=== PATIENT | female | born 1960 | race Caucasian/White ===

== ENCOUNTER 2022-01-22 10:42 | Emergency (ER) | payer MEDICAID, SELFPAY ==
[2022-01-22 11:00] VITALS: BP 143/72; PULSE 93; RESP 19; TEMP 36.9; O2SAT 97; BMI 25.3
--- NOTE | 2022-01-22 11:17 | HMH.EDUTC ---
[facility] [place] Disposition Clinical Impression: URI (upper respiratory infection) Qualifiers: URI type: unspecified URI Qualified Code(s): J06.9 - Acute upper respiratory infection, unspecified Disposition: Home, Self-Care Condition on Discharge: Good Instructions: DI for COVID-19 (Suspected or Confirmed ), Preventing the Spread of Coronavirus Discharge Instructions Additional Instructions: *Monitor Temp, Over the counter Motrin or Tylenol as directed/as needed Tylenol every 4 hours and Motrin every 6 hours (as long as your family doctor has told you that you can take it) for fever or pain. and straight to ER if unable to lower temp less than 101.0 after medication given Follow up IMMEDIATELY for new or worsening symptoms or no Noticeable improvement over the next 48-72 hours. 911 for difficulty breathing or swallowing You were tested for today for COVID19 your test result should be back in the next 24-48 hours, you may check your results on the [facility] My Health Portal Make sure to take your Vitamins Vit. C Vit D and Zinc if you can take them Prescriptions: guaiFENesin [Mucinex 600mg tablet] 1 - 2 tab PO Q12HP PRN #20 tab PRN Reason: Congestion Transmission Status: Pending to [facility] methylPREDNISolone [Medrol 4mg tab] 4 mg PO DIRECTED #21 tab Transmission Status: Pending to [facility] Azithromycin [Z-Landon 250mg Tab] 250 mg PO DIRECTED #6 tab Transmission Status: Pending to [facility] Referrals: Provider,Referral, MD [Primary Care Provider] - As needed Forms: Work/School Release Medical Decision Making - Joshua Inquiry Pt receiving controlled substance: No Joshua was queried for this patient: No Vital Signs: 01/22/22 11:00 Temperature 98.5 F Temperature Source Oral Pulse Rate [Left Brachial] 93 H Respiratory Rate 19 Blood Pressure [Left Arm] 143/72 H Blood Pressure Mean [Left Arm] 95 Blood Pressure Source [Left Arm] Automatic Cuff Blood Pressure Position [Left Arm] Sitting 02 Sat by Pulse Oximetry 97 Oxygen Delivery Method Room Air Orders (Tests/Meds): ORDERS Category Date Time Status Covid-19 Nasal PCR ([facility]) Routine Lab 01/22/22 11:00 Ordered [facility] [place] HPI - General Stated complaint: covid test Time Seen by Provider: 01/22/22 11:17 Mode of Arrival: Ambulatory Source of Information: Patient Limitations: No Limitations Description of Symptoms (Recalled from Triage Doc. by RN): PATIENT C/O RUNNY NOSE AND CHEST CONGESTION SINCE FRIDAY. SHE REPORTS HER SISTER IS POSITIVE FOR COVID HEENT Symptoms (Recalled from RN notes): Yes Resp Symptoms (Recalled from RN notes): No Skin Symptoms (Recalled from RN notes): No MS Symptoms (Recalled from RN notes): No Functional Status (Recalled from RN notes): WNL - History of Present Illness Provider Complaint: Patient states that she has been having sinus congestion, pressure behind her eyes, and chest congestion States that then she was around her sister over the weekend that tested positive for COVID so she came in to get checked - Related Data Previous Rx's Medication Instructions Recorded Azithromycin [Z-Landon 250mg Tab] 250 mg PO DIRECTED #6 tab 01/22/22 guaiFENesin [Mucinex 600mg tablet] 1 - 2 tab PO Q12HP PRN #20 tab 01/22/22 methylPREDNISolone [Medrol 4mg 4 mg PO DIRECTED #21 tab 01/22/22 tab] Allergies Allergy/AdvReac Type Severity Reaction Status Date / Time Penicillins [PENICILLINS] Allergy Intermediate Hives Verified 07/04/19 11:56 - Worker's Comp Is this a Worker's Comp case?: No [facility] History - Hepatitis A Screen Attestation statement:: This patient has been screened for Hepatitis A risk factors. I have reviewed the patient's past medical history: Yes Medical History: Denies:: Cancer, Diabetes Mellitus Type 1, Diabetes Mellitus Type 2, MRSA Comment: Patient states no significant medical history. Other Surgeries: Yes: Tubal Ligation Amputation: No Fractures: No - Social Histo
[2022-01-22 11:30] VITALS: BP 143/72; PULSE 93; RESP 19; TEMP 36.9; O2SAT 97
== END 2022-01-22 11:33 | disposition home or self-care (01) ==
PROVIDERS: Emergency Provider Nurse Practitioner
DX: J06.9 Acute upper respiratory infection, unspecified (principal); Z72.0 Tobacco use; R09.81 Nasal congestion; R09.89 Other specified symptoms and signs involving the circulatory and respiratory systems; Z20.822 Contact with and (suspected) exposure to COVID-19
CPT/HCPCS: 99212; C9803; G0463; U0003; U0005

== ENCOUNTER 2024-01-22 20:09 | Emergency (ER) | payer BC, SELFPAY ==
[2024-01-22 20:09] VITALS: BP 142/67; PULSE 79; RESP 16; TEMP 36.4; O2SAT 96; BMI 31.7
--- NOTE | 2024-01-22 20:10 | ECG_ITS ---
APPROVED REPORT Exam: Resting ECG HR:80 bpm ECG Measurements Heart Rate 80 AXES GA 133 P 77 QRSd 90 QRS 86 QT 382 T 81 QTc 418 Conclusion SINUS RHYTHM NORMAL ECG UNCONFIRMED REPORT Electronically signed by : Fidel Bullock, 01/22/2024 23:15:04
--- NOTE | 2024-01-22 20:15 | CT_ITS ---
PROCEDURE INFORMATION: Exam: CT Head Without Contrast Exam date and time: 01/22/2024 8:32 PM Age: 63 years old Clinical indication: Injury or trauma; Additional info: Syncope TECHNIQUE: Imaging protocol: Computed tomography of the head without contrast. Radiation optimization: All CT scans at this facility use at least one of these dose optimization techniques: automated exposure control; mA and/or kV adjustment per patient size (includes targeted exams where dose is matched to clinical indication); or iterative reconstruction. COMPARISON: No relevant prior studies available. FINDINGS: Brain: The brain parenchyma appears unremarkable, with no signs of acute intracranial hemorrhage or significant mass effect. There is hypodensity in the subcortical and periventricular white matter which is technically nonspecific but most often related to chronic microvascular disease. Cerebral ventricles: Mild ventricular enlargement consistent with age-related cerebral atrophy is noted. Paranasal sinuses: Paranasal sinuses show age-appropriate mucosal thickening. Mastoid air cells: Visualized mastoid air cells are well aerated. Bones: There are no skull fractures or bony lesions. Soft tissues: Unremarkable. IMPRESSION: Presumably age-related and chronic changes without acute intracranial abnormality.
--- NOTE | 2024-01-22 20:15 | ED_ITS ---
<Statement entered by Ora Bullock MD - 01/22/24 23:08> I was consulted by the TANO, and we discussed the complexity of the problems being addressed. I approved the treatment and management plan for this patient's care in the emergency department, thus performing a substantive portion of the medical decision making. Ora Bullock MD, OLIVIA, FACEP Discharge Plan Disposition Patient Disposition: Home, Self-Care Condition: Good Chief Complaint: Syncope Prescriptions Prescriptions: No Action azithromycin 250 MG tablet 250 mg PO DIRECTED Qty: 6 0RF Rx Instructions: Take two (2) tablets on day #1, then one (1) tablet day #2 thru #5 methylprednisolone 4 MG tablet 4 mg PO DIRECTED Qty: 21 0RF Rx Instructions: Take as directed on package instructions guaifenesin 600 MG tablet extended release 12hr 1 - 2 tab PO Q12HP PRN (Reason: Congestion) Qty: 20 0RF Referrals Follow up/Referrals: Gorge Bustso MD [Staff Physician] - See instructions Activity Restrictions/Add. Instructions Additional Instructions/Restrictions: Please follow-up with your PCP for recheck. I referred you to cardiology for full cardiovascular workup. Return to ER for any worsening signs or symptoms as needed. Clinical Impressions Clinical Impression: Syncope Qualifiers: Syncope type: unspecified Qualified Code(s): R55 - Syncope and collapse Heat exposure Qualifiers: Encounter type: initial encounter Qualified Code(s): T67.9XXA - Effect of heat and light, unspecified, initial encounter Instructions Patient Instructions: DI for Syncope in Adults (Fainting) Discharge ED Provider: Ora Bullock General Adult HPI General Chief complaint: Syncope Stated complaint: heat exposure Time Seen by Provider: 01/22/24 20:15 History of Present Illness HPI narrative: Patient presents for evaluation after a syncopal event. Patient was with her family at [facility] failure around 5 in the evening. Patient unsure of the events but felt like after while she was getting very hot and lightheaded and dizzy. Patient's daughter states that she noticed her being unsteady and shaking and patient had to sit down on the ground. She never actually had a complete syncopal event but was somewhat unresponsive to questions and requests for a while and at that point her daughter called 911. Currently patient reports only feeling cold but states that she did feel like that she got overheated. Currently has no chest pain hemoptysis hematochezia melena nausea vomiting diarrhea shortness of breath Related Data Previous Rx's Medication Instructions Recorded azithromycin 250 mg tablet 250 mg PO DIRECTED #6 tabs 01/22/22 guaifenesin 600 mg tablet, 1 - 2 tab PO Q12HP PRN Congestion 01/22/22 extended release 12 hr #20 tabs methylprednisolone 4 mg tablet 4 mg PO DIRECTED #21 tabs 01/22/22 Allergies Allergy/AdvReac Type Severity Reaction Status Date / Time Penicillins [PENICILLINS] Allergy Intermediate Hives Verified 07/04/19 11:56 [facility] Disclaimer: The information contained in this section may have been updated after the patient was seen, as this information can be updated by other users. Social History Smoking Status: Current every day smoker tobacco type: cigarettes packs per day: 1 alcohol intake: never current occupational status: other Travel in the last 8 weeks: None ROS Obtained: Yes Systems reviewed as appropriate & no additional complaints except as documented Physical Exam General General appearance: alert and in no apparent distress Head Head exam: atraumatic and normal inspection Eye Eye exam: Present normal appearance, PERRL and EOMI ENT ENT exam: Present normal exam, normal oropharynx and mucous membranes dry Neck Neck exam: Present normal inspection, full ROM and trachea midline Chest Chest inspection: Present normal inspection and symmetric chest wall rise Respiratory Respiratory exam: Present normal lung sounds bilaterally; Absent respiratory distress Cardiovascular Cardiovascular exam: Present regular rate, normal rhythm, normal heart sounds, +S1 and +S2 Abdominal Exam Abdominal exam: Present soft and normal bowel sounds; Absent tenderness, guarding or rebound Extremities Exam Extremities exam: Present normal inspection and full ROM Back Exam Back exam: Present normal inspection and full ROM Neurological Exam Neurological exam: Present alert, oriented X3, CN II-XII intact, normal gait and reflexes normal; Absent motor sensory deficit Psychiatric Psychiatric exam: Present normal affect and normal mood Skin Skin exam: Present warm, dry and normal color Medical Decision Making Medical Records Medical records reviewed: Yes I reviewed the patient's medical records. Joshua Inquiry Pt receiving controlled substance: No Vital Signs: 01/22/24 20:09 Temperature 97.6 F Temperature Source Oral Pulse Rate [Left] 79 Respiratory Rate 16 Blood Pressure [Right Arm] 142/67 H Blood Pressure Mean [Right Arm] 92 02 Sat by Pulse Oximetry 96 Oxygen Delivery Method Room Air Lab Data Lab results reviewed: Yes I reviewed the patient's lab results. Lab Results 01/22/24 20:12: WBC 12.5 H, RBC 4.34, Hgb 14.3, Hct 43.9, MCV 101.0 H, MCH 32.9 H, MCHC 32.6, RDW 12.9, Plt Count 280, MPV 8.0, Neut % (Auto) 70.5, Lymph % (Auto) 23.6, [place]in[place] % (Auto) 3.5, Eos % (Auto) 1.3, Baso % (Auto) 1.0, Neut # (Auto) 8.8 H, Lymph # (Auto) 3.0, [place]in[place] # (Auto) 0.4, Eos # (Auto) 0.2, Baso # (Auto) 0.1, PT 11.5, INR 1.07, Sodium 139, Potassium 3.6, Chloride 109 H, Carbon Dioxide 22, Anion Gap 11.6, BUN 15, Creatinine 0.90, Estimated Creat Clear 68, Estimated GFR 63, Est GFR ( Amer) 76, Glucose 112 H, Calcium 9.2, Magnesium 1.6, Total Bilirubin 0.5, AST 29, ALT 18, Alkaline Phosphatase 115, Total Creatine Kinase 62 01/22/24 20:12: Total Creatine Kinase 63, Troponin I < 0.01, Total Protein 6.9, Albumin 3.9, Globulin 3.0, Albumin/Globulin Ratio 1.3 01/22/24 20:12 01/22/24 20:12 Orders (Tests/Meds): ED MEDICATIONS Discontinued Medications Generic Name Dose Route Start Last Admin Trade Name Abigail PRN Reason Stop Dose Admin Acetaminophen 1,000 mg 01/22/24 20:15 01/22/24 21:08 Acetaminophen 1,000mg/100ml Vial IV 01/22/24 20:16 1,000 mg ONCE ONE Administration Lactated Ringer's 1,000 mls @ 999 mls/hr 01/22/24 20:15 01/22/24 21:08 Lactated Ringer's 1000 Ml Bag IV 01/22/24 21:15 999 mls/hr .Q1H1M ONE Administration Iopamidol 180 ml 01/22/24 21:16 01/22/24 21:17 Iopamidol-370 (76%);100ml Bottle IV 01/22/24 21:17 180 ml ONCE ONE Administration Sodium Chloride 10 ml 01/22/24 21:16 01/22/24 21:17 Sodium Chloride 0.9% 10ml Syr (Rad Only) IV 01/22/24 21:17 10 ml ONCE ONE Administration Sodium Chloride 50 ml 01/22/24 21:16 01/22/24 21:17 0.9 % Sodium Chloride 50 Ml Vial IV 01/22/24 21:17 50 ml ONCE ONE Administration ORDERS Category Date Time Status CT angio abdomen pelvis Stat Cat Scan 01/22/24 20:[address] angio chest - dissection Stat Cat Scan 01/22/24 20:[address] angio head Stat Cat Scan 01/22/24 20:[address] angio neck Stat Cat Scan 01/22/24 20:[address] bony pelvis Stat Cat Scan 01/22/24 20:[address] cervical spine wo con Stat Cat Scan 01/22/24 20:[address] head/brain wo con Stat Cat Scan 01/22/24 20:[address] lumbar spine wo con Stat Cat Scan 01/22/24 20:[address] thoracic spine wo con Stat Cat Scan 01/22/24 20:23 Completed CBC w/Auto Diff [Complete Blood Count Auto Diff] Stat Lab 01/22/24 20:12 Completed CK [Creatine Kinase] Stat Lab 01/22/24 20:12 Completed CK [Creatine Kinase] Stat Lab 01/22/24 20:12 Completed CMP [Comprehensive Metabolic Panel] Stat Lab 01/22/24 20:12 Completed INR [Prothrombin Time INR] Stat Lab 01/22/24 20:12 Completed Lactic Acid Stat Lab 01/22/24 20:16 Ordered Magnesium Stat Lab 01/22/24 20:12 Completed Trop I [Troponin I] Stat Lab 01/22/24 20:12 Completed Troponin I Q3H Lab 01/22/24 23:30 Ordered Troponin I Q3H Lab 01/23/24 02:30 Ordered UA [Urinalysis and Microscopic] Stat Lab 01/22/24 20:16 Ordered HEART Score History (anamnesis): Slightly suspicious ECG: Normal Age: 45-65 years Risk factors: 1-2 risk factors Troponin: </= normal limit HEART Score: 2 Medical Decision Narrative: In summary patient is a 63-year-old female who presents to the emergency department for evaluation of near syncope. Patient is hemodynamically stable upon arrival, afebrile. Physical exam is unremarkable and nonfocal with a Glascow coma score 15. Differential diagnosis includes heat exhaustion versus arrhythmia versus stroke. Initial workup will be conducted with hematologic labs CT scans urinalysis. Initial interventions include personally bolus Toradol Tylenol. Initial workup reviewed by me shows that her hematologic labs are nonactionable and my informal interpretation of all of her imaging shows no acute processes.. Upon repeat evaluation patient is mentating appropriately with a Glascow coma score 15 is able to tolerate oral intake and ambulate without assistance or symptoms. Given this patient is appropriate for discharge back, she is to follow-up closely with her PCP for any worsening signs or symptoms and referral to cardiology for cardiac workup Critical Care Critical Care Time Critical Care Time: No
--- NOTE | 2024-01-22 20:23 | CT_ITS ---
PROCEDURE INFORMATION: Exam: CT Thoracic Spine Without Contrast Exam date and time: 01/22/2024 8:45 PM Age: 63 years old Clinical indication: Injury or trauma; Additional info: Trauma, critical injury suspected TECHNIQUE: Imaging protocol: Computed tomography of the thoracic spine without contrast. Radiation optimization: All CT scans at this facility use at least one of these dose optimization techniques: automated exposure control; mA and/or kV adjustment per patient size (includes targeted exams where dose is matched to clinical indication); or iterative reconstruction. COMPARISON: CT CERVICAL SPINE WO CON 01/22/2024 8:41 PM FINDINGS: Bones/joints: Multilevel cxur-lj-ralsjixg and moderate degenerative disc disease most pronounced at the midthoracic levels. Alignment and vertebral body heights are intact. No evident fracture. No evidence central canal narrowing. Soft tissues: Unremarkable. IMPRESSION: Degenerative changes. No acute abnormalities.
--- NOTE | 2024-01-22 20:23 | CT_ITS ---
PROCEDURE INFORMATION: Exam: CTA Chest With Contrast CTA Abdomen and Pelvis With Contrast Exam date and time: 01/22/2024 9:12 PM Age: 63 years old Clinical indication: Injury or trauma; Additional info: Trauma, critical injury suspected. Trauma reportedly fall from standing. TECHNIQUE: Imaging protocol: Computed tomographic angiography of the chest with contrast. Exam focused on the arteries. Computed tomographic angiography of the abdomen and pelvis with contrast. Exam focused on the arteries. 3D rendering (Not supervised by radiologist): MIP and/or 3D reconstructed images were created by the technologist. Radiation optimization: All CT scans at this facility use at least one of these dose optimization techniques: automated exposure control; mA and/or kV adjustment per patient size (includes targeted exams where dose is matched to clinical indication); or iterative reconstruction. Contrast material: ISOVUE 370; Contrast volume: 100 ml; Contrast route: INTRAVENOUS (IV); COMPARISON: CT BONY PELVIS 01/22/2024 8:54 PM FINDINGS: VASCULATURE: Pulmonary arteries: Normal. No pulmonary emboli. 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 Moderate atherosclerotic changes of the aorta. Celiac trunk and mesenteric arteries: Ubuyvqdm-mv-siagjq atherosclerotic narrowing of the origin of the celiac artery. No stenosis of the SMA. Renal arteries: Potential hnqpugpw-xb-orgvmf stenosis of the origin of the right renal artery. No stenosis of the left renal artery. Right iliac arteries: No occlusion or significant stenosis. Left iliac arteries: No occlusion or significant stenosis. CHEST: Lungs: A 6 mm posterior left upper lobe nodule noted on axial image 126 of series 2. Lungs otherwise clear. Pleural spaces: Unremarkable. No pneumothorax. No pleural effusion. Heart: Unremarkable. No cardiomegaly. No pericardial effusion. ABDOMEN AND PELVIS: Liver: Fatty liver changes with associated hepatomegaly measuring 16.5 cm. Liver otherwise unremarkable. Gallbladder and bile ducts: Unremarkable. No calcified stones. No ductal dilation. Pancreas: Unremarkable. No mass. No ductal dilation. Spleen: Unremarkable. No splenomegaly. Adrenal glands: Unremarkable. No mass. Kidneys and ureters: Unremarkable. No solid mass. No hydronephrosis. Stomach and bowel: Multiple diverticula of the sigmoid and descending colon. Colon otherwise unremarkable with no evidence of diverticulitis. GI tract structures otherwise unremarkable with no evident wall thickening allowing for incomplete distention. Appendix: Appendix is normal. No evidence of appendicitis. Intraperitoneal space: Unremarkable. No free air. No significant fluid collection. Urinary bladder: Unremarkable. No mass. Reproductive: Unremarkable as visualized. Lymph nodes: Unremarkable. No enlarged lymph nodes. Bones/joints: Unremarkable. No acute fracture. Soft tissues: Unremarkable. IMPRESSION: 1. No acute traumatic abnormality of the chest, abdomen and pelvis. 2. Incidental 6 mm left upper lobe nodule. For patients at low risk (minimal or absent history of smoking and of other known risk factors), recommend CT Chest at 6-12 months, then consider CT Chest at 18-24 months. For patients at high risk (history of smoking or of other known risk factors), recommend CT Chest at 6-12 months, then CT Chest at 18-24 months. (Reference: Jose Daniel) 3. 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 4. Trhokhyg-uq-rpxizd atherosclerotic narrowing of the origins of the celiac and right renal artery. 5. Additional nonemergent findings as above. REFERENCES: Jose Daniel H, et al. Guidelines for Management of Incidental Pulmonary Nodules Detected on CT Images: From the Fleischner Society 2017. Radiology. 2017;284(1):228-243.
--- NOTE | 2024-01-22 20:23 | CT_ITS ---
PROCEDURE INFORMATION: Exam: CT Lumbar Spine Without Contrast Exam date and time: 01/22/2024 8:50 PM Age: 63 years old Clinical indication: Injury or trauma; Additional info: Trauma, critical injury suspected TECHNIQUE: Imaging protocol: Computed tomography of the lumbar spine without contrast. Radiation optimization: All CT scans at this facility use at least one of these dose optimization techniques: automated exposure control; mA and/or kV adjustment per patient size (includes targeted exams where dose is matched to clinical indication); or iterative reconstruction. COMPARISON: CT THORACIC SPINE WO CON 01/22/2024 8:45 PM FINDINGS: Bones/joints: Six lumbar type cgs-hsh-xvtpsrc vertebra compatible with lumbarization of the S1 segment noted. Multilevel gfki-ow-vpnpdggk degenerative disc disease involving essentially all lumbar levels with spurring. Associated mild disc space narrowing at L3-L4 and L5-S1. Bulging disc spur complex at L5-S1 with associated moderate foramina narrowing. Bulging disc spur complexes at L3-L4 and L4-L5 with yqip-tq-spwislqn foramina narrowing. Soft tissues: Unremarkable. IMPRESSION: 1. No acute abnormality. 2. Degenerative changes and transitional segment..
--- NOTE | 2024-01-22 20:23 | CT_ITS ---
PROCEDURE INFORMATION: Exam: CTA Neck With Contrast Exam date and time: 01/22/2024 9:06 PM Age: 63 years old Clinical indication: Injury or trauma; Additional info: Trauma, critical injury suspected TECHNIQUE: Imaging protocol: Computed tomographic angiography of the neck with contrast. Exam focused on the cervical segments of the vasculature. 3D rendering (Not supervised by radiologist): MIP and/or 3D reconstructed images were created by the technologist. Radiation optimization: All CT scans at this facility use at least one of these dose optimization techniques: automated exposure control; mA and/or kV adjustment per patient size (includes targeted exams where dose is matched to clinical indication); or iterative reconstruction. Contrast material: ISOVUE 370; Contrast volume: 100 ml; Contrast route: INTRAVENOUS (IV); COMPARISON: CT CERVICAL SPINE WO CON 01/22/2024 8:41 PM FINDINGS: Right common carotid artery: No dissection or laceration. No significant stenosis or occlusion. Right internal carotid artery: No dissection or laceration. No significant stenosis or occlusion. Right external carotid artery: No dissection or laceration. No significant stenosis or occlusion. Left common carotid artery: No dissection or laceration. No significant stenosis or occlusion. Left internal carotid artery: No dissection or laceration. No significant stenosis or occlusion. Left external carotid artery: No dissection or laceration. No significant stenosis or occlusion. Right vertebral artery: No dissection or laceration. No significant stenosis or occlusion. Left vertebral artery: No dissection or laceration. No significant stenosis or occlusion. Soft tissues: Normal. No significant soft tissue swelling. Bones/joints: There is no cervical fracture or dislocation present. IMPRESSION: No significant traumatic injury of the major vessels. REFERENCES: NASCET CRITERIA. The degree of stenosis in the cervical segment of the internal carotid artery is based on NASCET criteria. Normal is no stenosis. Mild is less than 50% stenosis. Moderate is 50-69% stenosis. Severe is 70% to 99% stenosis. Total occlusion is no detectable patent lumen.
--- NOTE | 2024-01-22 20:23 | CT_ITS ---
PROCEDURE INFORMATION: Exam: CTA Head With Contrast, Arteriography Exam date and time: 01/22/2024 9:06 PM Age: 63 years old Clinical indication: Injury or trauma; Additional info: Trauma, critical injury suspected TECHNIQUE: Imaging protocol: Computed tomographic angiography of the head with contrast. Exam focused on the arteries. 3D rendering (Not supervised by radiologist): MIP and/or 3D reconstructed images were created by the technologist. Radiation optimization: All CT scans at this facility use at least one of these dose optimization techniques: automated exposure control; mA and/or kV adjustment per patient size (includes targeted exams where dose is matched to clinical indication); or iterative reconstruction. Contrast material: ISOVUE 370; Contrast volume: 100 ml; Contrast route: INTRAVENOUS (IV); COMPARISON: CT HEAD/BRAIN WO CON 01/22/2024 8:32 PM FINDINGS: ANTERIOR CIRCULATION: Right internal carotid artery: Intracranial segment is patent with no significant stenosis. No aneurysm. Right middle cerebral artery: No occlusion or significant stenosis. No aneurysm. Right anterior cerebral artery: No occlusion or significant stenosis. No aneurysm. Left internal carotid artery: Intracranial segment is patent with no significant stenosis. No aneurysm. Left middle cerebral artery: No occlusion or significant stenosis. No aneurysm. Left anterior cerebral artery: No occlusion or significant stenosis. No aneurysm. POSTERIOR CIRCULATION: Right vertebral artery: No occlusion or significant stenosis. No aneurysm. Left vertebral artery: No occlusion or significant stenosis. No aneurysm. Basilar artery: No occlusion or significant stenosis. No aneurysm. Right posterior cerebral artery: No occlusion or significant stenosis. No aneurysm. Left posterior cerebral artery: No occlusion or significant stenosis. No aneurysm. Brain: No definite mass, mass effect, or midline shift. Cerebral ventricles: No ventriculomegaly. Bones/joints: Unremarkable. No acute fracture. Soft tissues: Unremarkable. IMPRESSION: No evidence for a embolism, occlusion, dissection, stenosis, or aneurysm.
--- NOTE | 2024-01-22 20:23 | CT_ITS ---
PROCEDURE INFORMATION: Exam: CT Cervical Spine Without Contrast Exam date and time: 01/22/2024 8:41 PM Age: 63 years old Clinical indication: Injury or trauma; Fall; Additional info: Trauma, critical injury suspected TECHNIQUE: Imaging protocol: Computed tomography of the cervical spine without contrast. Radiation optimization: All CT scans at this facility use at least one of these dose optimization techniques: automated exposure control; mA and/or kV adjustment per patient size (includes targeted exams where dose is matched to clinical indication); or iterative reconstruction. COMPARISON: 1. CT HEAD/BRAIN WO CON 01/22/2024 8:32 PM 2. CR CXR2V XR chest 2V 10/20/2018 1:59 PM 3. CR CXR1VP XR chest portable 01/30/2018 12:44 PM FINDINGS: Bones: The cervical spine shows relatively preserved alignment of the vertebral bodies with no evidence of acute fractures or dislocations. However, age-related degenerative changes are observed, including mild disc space narrowing and osteophyte formation at multiple levels. These findings are consistent with age related degenerative disease. Lungs: Lung apices are normal. Soft tissues: Unremarkable. IMPRESSION: Multilevel degenerative change without acute injury identified.
--- NOTE | 2024-01-22 20:24 | CT_ITS ---
PROCEDURE INFORMATION: Exam: CT Pelvis Without Contrast; Skeletal Exam date and time: 01/22/2024 8:54 PM Age: 63 years old Clinical indication: Injury or trauma; Additional info: Trauma, critical injury suspected TECHNIQUE: Imaging protocol: Computed tomography of the pelvis without contrast. Exam focused on the skeleton. Radiation optimization: All CT scans at this facility use at least one of these dose optimization techniques: automated exposure control; mA and/or kV adjustment per patient size (includes targeted exams where dose is matched to clinical indication); or iterative reconstruction. COMPARISON: CT LUMBAR SPINE WO CON 01/22/2024 8:50 PM FINDINGS: Bones/joints: Unremarkable. No acute fracture. No dislocation. Soft tissues: Unremarkable. IMPRESSION: No acute findings.
--- NOTE | 2024-01-22 20:30 | PC.NURSE ---
patient to CT
[2024-01-22 20:35] LABS: Basophils # 0.1 K/mm3 (0-0.2); Eosinophils # 0.2 K/mm3 (0.0-0.4); Eosinophils % 1.3 % (0.1-12.0); Hematocrit 43.9 % (37.0-47.0); Hemoglobin 14.3 g/dL (12.2-16.2); Lymphocytes % 23.6 % (10-50); Mean Corpuscular HGB Conc 32.6 g/dL (31.8-35.4); Mean Corpuscular Hemoglobin 32.9 pg (27.0-31.2); Monocytes # 0.4 K/mm3 (0.1-1.0); Monocytes % 3.5 % (1.7-9.3); Neutrophils # 8.8 K/mm3 (1.8-7.8); Neutrophils % 70.5 % (37.0-80.0); Platelet Count 280 K/mm3 (142-424); Red Blood Count 4.34 M/mm3 (4.20-5.40); Red Cell Distribution Width 12.9 % (11.5-17.5); White Blood Count 12.5 K/mm3 (4.8-10.8)
[2024-01-22 20:36] LABS: Chloride 109 mmol/L (98-107); Potassium 3.6 mmoL/L (3.5-5.1); Sodium 139 mmol/L (136-145)
[2024-01-22 20:38] LABS: Blood Urea Nitrogen 15 mg/dl (7-17); Creatinine Clearance Estimated 68 mL/min (50-200); Estimated Glomerular Filt Rate 63 ml/min (>60); GFR (African American) 76 ML/MIN (>60)
[2024-01-22 20:39] LABS: Alanine Aminotransferase 18 U/L (12-78); Albumin Level 3.9 g/dl (3.5-5.0); Albumin/Globulin Ratio 1.3 (1.1-1.8); Alkaline Phosphatase 115 U/L (38-126); Anion Gap 11.6 mEq/L (5-15); Aspartate Amino Transferase 29 U/L (14-36); Bilirubin,Total 0.5 mg/dl (0.2-1.3); Calcium 9.2 mg/dl (8.4-10.2); Carbon Dioxide 22 mmol/L (22.0-30.0); Creatine Kinase 62 U/L (30-135); Glucose 112 mg/dl (74-100); Magnesium 1.6 mg/dl (1.6-2.3); Total Protein,Serum 6.9 g/dl (6.3-8.2)
[2024-01-22 20:40] LABS: INR 1.07 (0.9-1.1); Prothrombin Time 11.5 seconds (10.1-12.5)
[2024-01-22 20:52] LABS: Troponin I < 0.01 ng/ml (0.00-0.034)
[2024-01-22] MEDS: LACTATED RINGERS 1000ML 1,000 ML 999 ML IV (21:08)
[2024-01-22] MEDS: ACETAMINOPHEN 1,000MG/100ML VIAL 1000 MG IV (21:08)
[2024-01-22] MEDS: SODIUM CHLORIDE 0.9% 10ML SYR (RAD ONLY) 10 ML IV (21:17)
[2024-01-22] MEDS: IOPAMIDOL-370 (76%);100ML BOTTLE 180 ML IV (21:17)
[2024-01-22] MEDS: 0.9 % SODIUM CHLORIDE 50 ML VIAL IV (21:17)
[2024-01-22 21:30] VITALS: BP 133/83; PULSE 84; O2SAT 98
[2024-01-22 21:30] LABS: Creatine Kinase 63 U/L (30-135)
[2024-01-22 22:00] VITALS: BP 148/101; PULSE 90; O2SAT 98
[2024-01-22 22:34] LABS: Microscopic, Urine URINE MICROSCOPIC (MICROSCOPIC)
[2024-01-22 22:44] LABS: Appearance,Urine CLEAR (Clear); Bilirubin,Urine Negative (Negative); Blood, Urine Negative (Negative); Color,Urine YELLOW (Yellow); Glucose,Urine (UA) Negative (Negative); Ketones,Urine Negative (Negative); Leukocyte Esterase,Urine Negative (Negative); Nitrate,Urine Negative (Negative); PH,Urine 6.5 (5.0-8.5); Protein,Urine Negative (Negative); Specific Gravity, Urine <= 1.005 (1.005-1.030); Urobilinogen,Urine 0.2 EU/dl (0.2)
[2024-01-22 23:01] VITALS: BP 126/88; PULSE 94; RESP 16; TEMP 36.4; O2SAT 98
== END 2024-01-22 23:02 | disposition home or self-care (01) ==
PROVIDERS: Physician Assistant; Emergency Provider Student in an Organized Health Care Education/Training Program
DX: T67.1XXA Heat syncope, initial encounter (principal); F17.210 Nicotine dependence, cigarettes, uncomplicated; X30.XXXA Exposure to excessive natural heat, initial encounter
CPT/HCPCS: 70450; 70496; 70498; 71275; 72125; 72128; 72131; 72192; 74174; 80053; 81001; 82550; 83735; 84484; 85025; 85610; 93005; 96361; 96374; 99285; J0131; J7120; Q9967

== ENCOUNTER 2024-02-09 13:57 | Outpatient (CLI) | payer MEDICARE, SELFPAY | END 2024-02-09 23:59 | disposition home or self-care (01) | LOC: RT 14:01 | PROVIDERS: Visit Provider Physician Assistant | DX: R07.89 Other chest pain (principal); R55 Syncope and collapse; R00.0 Tachycardia, unspecified; I25.10 Atherosclerotic heart disease of native coronary artery without angina pectoris; F17.210 Nicotine dependence, cigarettes, uncomplicated | CPT/HCPCS: 93225; 93227 ==

== ENCOUNTER 2024-02-19 07:14 | Outpatient (CLI) | payer MEDICARE, SELFPAY ==
--- NOTE | 2024-02-19 07:15 | NM_ITS ---
APPROVED REPORT Exam: Nuclear Stress Test Indication: cp..soa..syncope..fatigue..smoker Patient Location: Outpatient Stress Tech: Janice Stanton [place] Tech:Tisha PeñaTORY RT(R)(N) Ht: 5 ft 4 in Wt: 160 lbs Bra Size: 38d HR: 69 bpm BP: 148/78 mmHg BSA: 1.78 m2 TID: 1.18 BMI: 27.4 History: cp..soa..syncope..fatigue..smoker Procedure: Patient received 0.4 mg of intravenous Lexiscan, resting heart rate 69 bpm, resting blood pressure 148/78 mmHg, with Lexiscan maximum heart rate achieved was 97 bpm which is 85 % of the maximum predicted heart rate and blood pressure was 152/80 mmHg. With Lexiscan, patient denied any complaint of chest pain. Cardiac Stress and Resting SPECT Images: Cardiac Stress and Resting SPECT images were obtained using technetium 99m Myoview 29.1 mCi stress and 10.58 mCi at rest. Resting and stress imaging in supine and prone positions demonstrate no evidence of fixed or reversible perfusion defects. Gated imaging demonstrates normal global and regional LV systolic function. LVEF is calculated at 60%. Conclusion: No evidence of fixed or reversible perfusion defects. Gated imaging demonstrates normal global and regional LV systolic function. LVEF is calculated at 60%. Electronically signed by : Sisi Bustos MD 02/22/2024 22:34:03
--- NOTE | 2024-02-19 08:14 | CA_ITS ---
APPROVED REPORT EXAM: Comprehensive 2D, Doppler, and color-flow Echocardiogram Wheel Presser: Joanie Rodriguez RT(R) Ht: 5 ft 4 in Wt: 160lbs BSA: 1.78 BP: 138/78 mmHg Indications: CAD, CP, smoker, presyncope, SOB, Abn EKG, family history of HD. 2D Dimensions Left Atrium 3.01 cm F: 2.7 - 3.8 LVEF (Delatorre's) 54.90 % F: 54 - 74 LVOT 1.93 cm (M/F) 1.5-2.5 LV Volume 70.00 mL F: 46 - 106 LV Volume Index 39.3 mL/m2 F: 29 - 61 LA Volume 19.10 mL LA Volume Index 10.73 mL/m2 (M/F) 16-34 EF AP4 53.80 % EF AP2 48.3 % EF BP 54.9 % GL Strain -18.1 % M-Mode Dimensions RVDd 2.75 cm (0.9-2.6) LVDd 4.15 cm (3.5-5.7) Ao Diam 2.65 cm (2.0-3.7) LVDs 2.97 cm (3.5-5.7) IVSd 0.79 cm (0.6-1.1) PWd 0.79 cm (0.6-1.1) EF (Teich) 55.20% FS 28.40% EDV (Teich) 76.40 mL ESV (Teich) 34.20 mL LV Diastology E Decel Time 194 (160-240 msec) E/A Ratio 0.8 MED E' 7.8 (>= 7 cm/sec) E'/MED E' Ratio 6.53 (<= 14) LAT E' 8.2 (>= 10 cm/sec) E/LAT E' Ratio 6.21 (<= 14) Mitral Valve MV E Max Solitario. 51.0 (40-130 cm/s) MV A Velocity 61.0 (40-130 cm/s) E/A Ratio 0.83 MV Decel. Time 194 (160-240 ms) Left Ventricle The left ventricle is normal size. The left ventricular systolic function is normal. The left ventricular ejection fraction is within the normal range. There is increased LV wall thickness. There is normal LV segmental wall motion. The left ventricular diastolic function is normal. LVEF is 55%. Right Ventricle The right ventricle is normal size. The right ventricular systolic function is normal. Atria The left atrium size is normal. The right atrium size is normal. There is no Doppler evidence of interatrial shunt. Aortic Valve The aortic valve opens well. There is no aortic valvular stenosis. No aortic regurgitation is present. Mitral Valve The mitral valve is normal in structure. No evidence of mitral valve stenosis. There is no mitral valve regurgitation noted. Tricuspid Valve The tricuspid valve leaflets are thin and pliable. Trace tricuspid regurgitation. There is insufficient TR jet to estimate RVSP. Pulmonic Valve The pulmonary valve is normal in structure. Trace pulmonic regurgitation. Great Vessels The aortic root is normal in size. The ascending aorta is not well-visualized. IVC is normal in size and collapses >50% with inspiration. Pericardium Trivial, anterior pericardial effusion. There are no echo indications of tamponade. Other Information Study Quality: Technically Difficult Conclusion Technically difficult study due to poor acoustic windows. Normal biventricular systolic function. No significant valvular stenosis or regurgitation. Trivial, anterior pericardial effusion is noted. No echo indications of tamponade. Electronically signed by : Sisi Bustos MD 02/22/2024 22:23:51
--- NOTE | 2024-02-19 08:44 | CA_ITS ---
APPROVED REPORT Exam: Pharmacologic Technologist: Janice Hurley, Ht: 5 ft 2 in Wt: 159 lbs BSA: 1.73 m2 HR: 66 bpm BP: 148/78 mmHg Rhythm: NSR Indications: Syncope, dizziness, Coronary calcium on CT Stress Test Details Test: LEXISCAN Reason for pharmacologic stress test: physical limitation. Reversal agent Aminophyline 100.0 mg, given intravenously for Abdominal pain and nausea. HR Resting HR: 69 bpm Max Heart Rate (APMHR): 156 bpm Max HR Achieved: 97 bpm Target HR (85% APMHR): 133 bpm % of APMHR: 62 Recovery HR: 72 bpm BP Resting BP: 148.0/78.0 mmHg Max BP: 152.0/80.0 mmHg Recovery BP: 143.0/85.0 mmHg ECG Resting ECG: NSR Stress ECG: No significant ST changes Arrhythmia: None Clinical Exercise duration: 04:00 min Highest Stage Achieved: Exercise capacity: 1.0 METs Stress ECG Conclusion Vasodilation 1min: SOA 2min: Nausea, stomach pain, CP 3min: Nausea, stomach pain 4min: Nausea, stomach pain Recovery 1min: Aminophylline 100mg slow IV given 3min: Feels better 5min: Symptoms resolved Symptoms: SOA, chest pressure, stomach pain/cramps. Arrhythmias/Ectopy: None ST-T Changes: No significant ST changes. Conclusion: Unremarkable Lexiscan stress. Myoview images reported separately. Test Summary REST . . . . . . . Resting REST 02:35 . . 69 . 148/ 78 . . Stage 1 01:00 . . 90 . . . . Stage 2 01:00 . . 91 . . . . Stage 3 01:00 . . 89 . 152/ 80 . . Stage 4 01:00 . . 89 . 142/ 82 . Stop exercise at 04:00 RECOVERY 01:00 . . 89 . . . . RECOVERY 02:00 . . 81 . . . . RECOVERY 03:00 . . 72 . 139/ 80 . . RECOVERY 04:00 . . 82 . 139/ 80 . . RECOVERY 05:00 . . 72 . 139/ 80 . . RECOVERY 05:28 . . 73 . 143/ 85 . . Electronically signed by : Sisi Bustos MD 02/22/2024 22:33:10
== END 2024-02-19 23:59 | disposition home or self-care (01) ==
LOC: RAD 07:15
PROVIDERS: PCP Family Medicine; Visit Provider Physician Assistant
DX: R07.89 Other chest pain; R55 Syncope and collapse; I25.118 Atherosclerotic heart disease of native coronary artery with other forms of angina pectoris; R00.0 Tachycardia, unspecified
CPT/HCPCS: 78452; 93017; 93018; 93306; A9502; J2785

== ENCOUNTER 2024-03-19 11:07 | Outpatient (CLI) | payer MEDICARE, SELFPAY ==
--- NOTE | 2024-03-19 11:07 | MR_ITS ---
FINAL REPORT CLINICAL HISTORY: Syncope versus seizure. episode 2 months ago where she states she passed out COMPARISON: None FINDINGS: Multiplanar MR imaging of the brain was performed without contrast. There is mild age-appropriate atrophy. There are scattered foci of increased T2 signal in the cerebral white matter that have a nonspecific appearance but likely represent mild chronic ischemic/gliotic changes. There is no evidence of intracranial hemorrhage or mass. No abnormal ventricular dilatation is identified. No abnormal extra-axial fluid collection is seen. No abnormality is seen on the diffusion weighted images. The posterior fossa and brainstem are unremarkable. Normal major vessel vascular flow voids are seen. There is mild mucosal thickening in several paranasal sinuses. IMPRESSION: Age-appropriate atrophy and mild chronic ischemic/gliotic changes. No acute intracranial abnormality. Reviewed, Interpreted and Dictated by Nixon Ma III, MD Transcribed by Yolis Guerrier Authenticated and [facility]
== END 2024-03-19 23:59 | disposition home or self-care (01) ==
LOC: RAD 11:07
PROVIDERS: PCP Family Medicine; Visit Provider Specialist
DX: R40.4 Transient alteration of awareness (principal)
CPT/HCPCS: 70551

== ENCOUNTER 2024-05-25 09:55 | Outpatient (CLI) | payer MEDICARE, SELFPAY ==
[2024-05-25 10:49] LABS: Alanine Aminotransferase 18 U/L (12-78); Albumin Level 4.3 g/dl (3.5-5.0); Alkaline Phosphatase 84 U/L (38-126); Aspartate Amino Transferase 27 U/L (14-36); Bilirubin,Direct 0.3 mg/dl (0.0-0.4); Bilirubin,Indirect 0.4 mg/dL (0.0-0.9); Bilirubin,Total 0.7 mg/dl (0.2-1.3); Bilirubin,Unconjugated 0.4 mg/dL (0.0-1.1); Chol/HDL Ratio 2.2 (1-3.5); Cholesterol 134 mg/dl (140-200); HDL Cholesterol 62 mg/dl (40-60); Total Protein,Serum 6.8 g/dl (6.3-8.2); Triglycerides 76 mg/dl (30-150); VLDL Cholesterol 15 mg/dL (0-40)
[2024-05-25 11:00] LABS: Direct LDL Cholesterol 54.27 mg/dL (100-129)
== END 2024-05-25 23:59 | disposition home or self-care (01) ==
LOC: LAB 09:56
PROVIDERS: PCP Family Medicine; Visit Provider Physician Assistant
DX: I25.118 Atherosclerotic heart disease of native coronary artery with other forms of angina pectoris (principal); I70.1 Atherosclerosis of renal artery; I77.1 Stricture of artery; Z72.0 Tobacco use; T67.9XXA Effect of heat and light, unspecified, initial encounter; R55 Syncope and collapse
CPT/HCPCS: 36415; 80061; 80076

== ENCOUNTER 2024-12-08 15:30 | Outpatient (CLI) | payer MEDICARE, SELFPAY ==
[2024-12-08 16:12] LABS: Basophils # 0.1 K/mm3 (0-0.2); Basophils % 0.7 % (0.1-2.0); Eosinophils # 0.1 Kmm3 (0.0-0.4); Hematocrit 42.3 % (37.0-47.0); Hemoglobin 14.6 g/dL (12.2-16.2); Immature Granulocytes # 0.03 10^3uL; Immature Granulocytes % 0.3 %; Lymphocytes # 3.7 K/mm3 (0.7-4.5); Lymphocytes % 32.7 % (10-50); Mean Corpuscular HGB Conc 34.5 g/dL (31.8-35.4); Mean Corpuscular Hemoglobin 33.6 pg (27.0-31.2); Mean Corpuscular Volume 97.5 fl (81-99); Mean Platelet Volume 9.5 fl (7.4-10.4); Monocytes # 0.6 K/mm3 (0.1-1.0); Monocytes % 5.1 % (1.7-9.3); Neutrophils # 6.8 K/mm3 (1.8-7.8); Neutrophils % 60.2 % (37.0-80.0); Nucleated Red Blood Cells # 0 10^3/uL; Nucleated Red Blood Cells % 0 %; Platelet Count 218 K/mm3 (142-424); Red Blood Count 4.34 M/mm3 (4.20-5.40); Red Cell Distribution Width 12.1 % (11.5-17.5); Red Cell Distribution Width-SD 43.4 fL; White Blood Count 11.3 K/mm3 (4.8-10.8)
[2024-12-08 16:45] LABS: Alanine Aminotransferase 13 U/L (12-78); Albumin Level 4.5 g/dl (3.5-5.0); Alkaline Phosphatase 105 U/L (38-126); Anion Gap 7.5 mEq/L (5-15); Aspartate Amino Transferase 24 U/L (14-36); Bilirubin,Direct 0.1 mg/dl (0.0-0.4); Bilirubin,Indirect 0.5 mg/dL (0.0-0.9); Bilirubin,Total 0.6 mg/dl (0.2-1.3); Bilirubin,Unconjugated 0.5 mg/dL (0.0-1.1); Blood Urea Nitrogen 10 mg/dl (7-17); Calcium 9.6 mg/dl (8.4-10.2); Carbon Dioxide 28 mmol/L (22.0-30.0); Chloride 107 mmol/L (98-107); Chol/HDL Ratio 2.1 (1-3.5); Cholesterol 121 mg/dl (140-200); Estimated Glomerular Filt Rate 84 ml/min (>60); GFR (African American) 102 ML/MIN (>60); Glucose 86 mg/dl (74-100); HDL Cholesterol 59 mg/dl (40-60); Potassium 4.5 mmoL/L (3.5-5.1); Sodium 138 mmol/L (136-145); Total Protein,Serum 6.7 g/dl (6.3-8.2); Triglycerides 60 mg/dl (30-150); VLDL Cholesterol 12 mg/dL (0-40)
[2024-12-08 16:56] LABS: Direct LDL Cholesterol 44.63 mg/dL (100-129)
[2024-12-08 17:04] LABS: Free T4 (Free Thyroxine) 1.37 ng/dl (0.78-2.19)
[2024-12-08 17:18] LABS: Thyroid Stimulating Hormone 1.03 uIU/mL (0.465-4.68)
== END 2024-12-08 23:59 | disposition home or self-care (01) ==
LOC: LAB 15:31
PROVIDERS: PCP Family Medicine; Visit Provider Physician Assistant
DX: I25.118 Atherosclerotic heart disease of native coronary artery with other forms of angina pectoris (principal); I70.1 Atherosclerosis of renal artery; I77.4 Celiac artery compression syndrome; E78.5 Hyperlipidemia, unspecified; Z72.0 Tobacco use
CPT/HCPCS: 36415; 80048; 80061; 80076; 84439; 84443; 85025